=== PATIENT | male | born 1985 | race Caucasian/White ===

== ENCOUNTER 2019-07-31 10:38 | Emergency (ER) | payer MEDICAID, SELFPAY ==
[2019-07-31] VITALS (8 sets, daily range): BP systolic 128–162; BP diastolic 71–113; PULSE 55–70; RESP 16–19; TEMP 36.4; O2SAT 96–99; BMI 27.4
--- NOTE | 2019-07-31 11:14 | PC.NURSE ---
Addendum entered by Sharon Hobbs RN 07/31/19 11:29: denies abdominal pain with palpitation. Patient reports his stomach hurts due to the dry heaving. Original Note: Patient reports that he has had nausea, vomiting, and diarrhea since Monday. Patient states that is getting worse. Patient reports that he has been unable to eat or drink anything for 2 days. Patient denies abdominal pain.
[2019-07-31] MEDS: ondansetron 2 mg/ML SDV 2 mL 4 MG IVP ×2 (11:24→12:43)
--- NOTE | 2019-07-31 11:24 | ED_ITS ---
Entered by Emely Francis, acting as scribe for Mouna Greenwood MD Jul 31, 2019 10:38 HPI - Abdominal Pain General: Chief Complaint: Abdominal Pain Stated Complaint: N//////////////V Time Seen by Provider: 07/31/19 11:23 Source: patient Mode of arrival: ambulatory Limitations: no limitations History of Present Illness: HPI narrative: 33 yo male presents with abdomen pain. pt states this started 3 days ago but worsened today. pt has had nausea and vomiting. pt states he is exposed to sick symptoms frequently with room mate that is a nurse. pt denies any other symptoms at this time. pt has a hx of MS. MD elicited complaint: abdominal pain Pertinent past history: other (MS) Onset (ago): day(s) (2-3 days) Pain Consistency: constant Location: Diffuse Severity: moderate Quality: cramping Exacerbating factors: other Relieving factors: nothing Context: sick contacts (room mate) Associated Symptoms: Reports chills, nausea, poor appetite and vomiting Review of Systems General: Reports: 10 or more systems reviewed and unremarkable except in HPI and below Const: Reports: chills Eyes: Denies: change in vision ENMT: Denies: throat pain Card: Denies: chest pain Resp: Denies: shortness of breath GI: Reports: nausea and vomiting Musc: Denies: muscle weakness Skin/Breast: Denies: rash Neuro: Denies: headache Psych: Denies: hopelessness or suicidal ideation Endo: Denies: excessive urination Jason/Lymph: Denies: easy bruising or easy bleeding All/Imm: Denies: hives PFSH ED PFSH: Social History Smoking and tobacco status: current every day smoker Physical Exam Const: COMMON NORMALS: no apparent distress, oriented x3, alert and well nourished HENMT: COMMON NORMALS: normocephalic and external nose normal HEAD & SCALP: normocephalic NOSE: external nose normal and mucous membranes and turbinates abnormal (dry) MOUTH: no trismus Eye: COMMON NORMALS: EOMs intact bilaterally and conjunctivae normal CONJUNCTIVA: Yes conjunctivae normal Neck/C-Spine: COMMON NORMALS: full ROM, no lymphadenopathy and supple CERVICAL SPINE: Yes cervical ROM normal Lymph: LYMPHATIC: no lymphadenopathy noted Resp: COMMON NORMALS: normal respiratory effort, no retractions, no use of accessory muscles and clear to auscultation bilaterally EFFORT & INSPECTION: Yes able to speak in complete sentences AUSCULTATION: clear to auscultation bilaterally Cardio: COMMON NORMALS: regular rate and regular rhythm RATE: regular rate RHYTHM: regular rhythm GI: COMMON NORMALS: soft to palpation AUSCULTATION: Yes absent bowel sounds PALPATION: Yes soft and Yes tender Back/Pelvis: OTHER: Normal range of motion Extremity: GENERAL: Yes normal exam except as noted Neuro: COMMON NORMALS: oriented x3 and CN's II-XII intact bilaterally SENSORIUM/ORIENTATION: Yes alert SPEECH: speech normal Psych: COMMON NORMALS: mental status grossly normal Skin: COMMON NORMALS: no rashes or lesions noted GENERAL SKIN EXAM: no rashes or lesions noted Course Vital Signs: Vital signs: Vital Signs Temperature 97.6 F 07/31/19 10:55 Pulse Rate 58 L 07/31/19 16:08 Respiratory Rate 16 07/31/19 16:08 Blood Pressure 162/87 07/31/19 16:08 Pulse Oximetry 97 07/31/19 16:08 MDM - Abdominal Pain MDM Narrative: Medical decision making narrative: Patient's white count is elevated but this is nonspecific he does not have a surgical abdomen and does not have abdominal pain except from dry heaving he states. Feels slightly better but just vomited. We will go ahead and order CT abdomen because of his white count at this point. Another liter of IV fluids pain medicine and IV Zofran ordered as well. 1527 patient sipping on water feeling better no recent vomiting feels like he can go home. Will discharge with Zofran and Phenergan prescription. Lab Data: Labs: Lab Results 07/31/19 07/31/19 07/31/19 Range/Units 11:39 11:45 11:45 WBC 19.2 H (4.0-10.0) 10^3/ uL RBC 5.89 H (4.1-5.3) 10^6/u L Hgb 16.4 (11.7-16.6) g/dL Hct 49.8 (42.0-52.0) % MCV 84.6 (80-94) fL MCH 27.8 L (28.0-34.0) pg MCHC 32.9 (30.0-36.0) g/dL RDW 12.5 (12.1-15.1) % Plt Count 338 (130-400) 10^3/c mm MPV 10.0 (7.4-10.4) fL Total Counted 100 (0-100) Segmented Neutroph ils 84 % Band Neutrophils 1.0 % Lymphocytes (Manua l) 11 % Monocytes (Manual) 3.0 % Absolute Monocytes 0.6 (0.1-0.6) 10^3/c mm Eosinophils (Manua l) 1 % Absolute Eosinophi ls 0.1 (0.0-0.7) 10^3/c mm Platelet Estimate Normal (Normal) Sodium 137 (136-145) mmol/L Potassium 4.3 (3.5-5.1) mmol/L Chloride 97 L (98-107) mmol/L Carbon Dioxide 22 (22-29) mmol/L Anion Gap 22.3 H (5-19) BUN 13 (6-20) mg/dL Creatinine 1.1 (0.7-1.2) mg/dL GFR Calculation 78.1 L (90-130) mL/min Glucose 138 H (65-115) mg/dL Calcium 10.9 H (8.5-10.5) mg/dL Total Bilirubin 0.9 (0.15-1.2) mg/dL AST 25 (0-40) U/L ALT 44 H (0-41) U/L Alkaline Phosphata se 124 (40-130) IU/L Total Protein 8.5 (6.6-8.7) g/dL Albumin 5.2 (3.5-5.2) g/dL Globulin 3.3 (1.3-4.6) g/dL Lipase 11 L (13-60) U/L Influenza Type A A g Negative (Negative) POC Influenza B Ag Negative (Negative) Imaging Data ^: CT Abd/Pel: Radiologist's impression: [address] [address] [address] Scan Report Signed Patient: Vipin Orona #: [id number] : 1985Acct#:[id number] Age/Sex: 33 / MADM Date: 07/31/19 Loc: ERRoom/Bed: Attending Dr: Ordering Provider/Ordering MD: Mouna Greenwood MD Date of Service: 07/31/19 Procedure(s): CT abdomen pelvis wo con [id number] Accession Number(s): [id number] Report Number: [id number] WS: [id number] CT ABDOMEN AND PELVIS NONCONTRAST HISTORY: abd pain, wbc 19k TECHNIQUE: Imaging performed through the abdomen and pelvis. Coronal and sagittal reformats are submitted. All CT scans at [facility] use at least one of these dose optimization techniques: automated exposure control; mA and/or kV adjustment per patient size (includes targeted exams where dose is matched to clinical indication); or iterative reconstruction. DLP: 643.92 mGy.cm COMPARISON: None available. Lower thorax: Lung bases are clear. Moderate size hiatal hernia. Heart size is normal. Liver: Normal, no mass or intrahepatic dilatation. Gallbladder: Unremarkable. Pancreas: Normal. Spleen: Normal. Adrenal glands: Normal. Right kidney: Normal size with no stones, masses or atrophy. Left kidney: Normal size with no stones, mass or atrophy. Abdominal aorta and IVC are unremarkable. No free fluid, intraperitoneal air or significant lymphadenopathy. GI tract: Appendix is normal. There is moderate fluid distention of the small bowel and the colon. Small bowel loops are measuring top normal at 2.9 cm. No obstructive pattern. No diverticulosis. No wall thickening is appreciated. Abdominal wall: Intact. Pelvis: Mild wall thickening of the urinary bladder. May be due to partial distention. No free fluid or adenopathy. Osseous structures: Unremarkable. CT/CT abdomen pelvis wo con [id number] IMPRESSION: 1. Normal appendix. 2. No renal stone or obstruction. 3. Moderate fluid distention of the small bowel and colon. No site of obstruction. Consider diffuse gastroenteritis. 4. No free fluid. 5. Moderate hiatal hernia. Dictated By:Latricia Andersen DO Signed By:Latricia Andersen DOSigned Date/Time:07/31/19 1304 Discharge Plan Discharge Patient Disposition: Home, Self-Care Clinical Impression: Gastroenteritis Condition: Stable Prescriptions: New ondansetron 4 mg tablet,disintegrating 4 mg PO TID PRN (Reason: nausea and vomiting) 4 Days Qty: 12 RF: 0 promethazine 25 mg tablet 25 mg PO Q6H PRN (Reason: nausea and vomiting) Qty: 10 RF: 0 No Action clonazepam 0.5 mg Tablet 0.5 mg PO BID RF: 0 modafinil 200 mg Tablet 200 mg PO DAILY RF: 0 Cymbalta 30 mg Capsule,Delayed Release(Dr/Ec) 30 mg PO BID RF: 0 Ms Med See Rx Instructions .ROUTE .COMPLEX RF: 0 Referrals: Stacey Hopkins APN [Family Provider] - Discharge Diet: Advance as tolerated and Clear Liquid Patient Instructions: Gastroenteritis (ED) Discharge Date/Time: 07/31/19 16:09 Coding Level of Care Code ED Language Interpreter for Chg Fwd Exam Comprehensive The documentation recorded by the Tito pack Bridget Annette, accurately reflects the service I personally performed and the decisions made by , Mouna Greenwood MD Jul 31, 2019 10:38
[2019-07-31] MEDS: sodium chloride 0.9% 1,000 ML 999 ML IV ×2 (11:26→12:51)
[2019-07-31 11:54] LABS: Hematocrit 49.8 % (42.0-52.0); Hemoglobin 16.4 g/dL (11.7-16.6); Mean Corpuscular HGB Conc 32.9 g/dL (30.0-36.0); Mean Corpuscular Hemoglobin 27.8 pg (28.0-34.0); Mean Corpuscular Volume 84.6 fL (80-94); Platelet Count 338 10^3/cmm (130-400); Red Blood Count 5.89 10^6/uL (4.1-5.3); Red Cell Distribution Width 12.5 % (12.1-15.1); White Blood Count 19.2 10^3/uL (4.0-10.0)
[2019-07-31] MEDS: promethazine 25 mg/mL SDV 1 mL IV (12:04)
[2019-07-31] MEDS: fentaNYL 50 mcg/mL INJ 2mL IVP ×3 (12:04→14:51)
--- NOTE | 2019-07-31 12:09 | PC.PHAR ---
PT STATES THAT HE TAKES MS MEDICATION, AND THAT HE GETS THEM AT A SPECIALTY PHARMACY. HE DOESN'T KNOW THE NAME OF THE PHARMACY.
[2019-07-31 12:15] LABS: Absolute Eosinophils 0.1 10^3/cmm (0.0-0.7); Absolute Segmented Neutrophil 16.1 10/cmm (1.6-7.1); Alanine Aminotransferase 44 U/L (0-41); Albumin Level 5.2 g/dL (3.5-5.2); Alkaline Phosphatase 124 IU/L (40-130); Anion Gap 22.3 (5-19); Aspartate Amino Transferase 25 U/L (0-40); Band Neutrophils Absolute 0.2 10^3/cmm (0.0-1.2); Blood Urea Nitrogen 13 mg/dL (6-20); Calcium 10.9 mg/dL (8.5-10.5); Carbon Dioxide 22 mmol/L (22-29); Chloride 97 mmol/L (98-107); Creatinine Clr Calc Pharmacy 95.1333; Eosinophils 1 %; Globulin 3.3 g/dL (1.3-4.6); Glomerular Filtration Rate 78.1 mL/min (90-130); Glucose 138 mg/dL (65-115); Lipase 11 U/L (13-60); Lymphocytes 11 %; Monocytes Absolute 0.6 10^3/cmm (0.1-0.6); Potassium 4.3 mmol/L (3.5-5.1); Segmented Neutrophils 84 %; Sodium 137 mmol/L (136-145); Total Bilirubin 0.9 mg/dL (0.15-1.2); Total Cells Counted 100 (0-100); Total Protein 8.5 g/dL (6.6-8.7)
[2019-07-31 12:16] LABS: Platelet Estimate Normal (Normal)
[2019-07-31 12:16] LABS: Influenza A by IFA Negative (Negative); Influenza B by IFA Negative (Negative)
--- NOTE | 2019-07-31 12:33 | CT_ITS ---
WS: [id number] CT ABDOMEN AND PELVIS NONCONTRAST HISTORY: abd pain, wbc 19k TECHNIQUE: Imaging performed through the abdomen and pelvis. Coronal and sagittal reformats are submi tted. All CT scans at [facility] use at least one of these dose optimization techniques: automated exposure control; mA and/or kV adjustment per patient size (includes targeted exams where d ose is matched to clinical indication); or iterative reconstruction. DLP: 643.92 mGy.cm COMPARISON: None available. Lower thorax: Lung bases are clear. Moderate size hiatal hernia. Heart size is normal. Liver: Normal, no mass or intrahepatic dilatation. Gallbladder: Unremarkable. Pancreas: Normal. Spleen: Normal. Adrenal glands: Normal. Right kidney: Normal size with no stones, masses or atrophy. Left kidney: Normal size with no stones, mass or atrophy. Abdominal aorta and IVC are unremarkable. No free fluid, intraperitoneal air or significant lymphadenopathy. GI tract: Appendix is normal. There is moderate fluid distention of the small bowel and the colon. Sm all bowel loops are measuring top normal at 2.9 cm. No obstructive pattern. No diverticulosis. No wal l thickening is appreciated. Abdominal wall: Intact. Pelvis: Mild wall thickening of the urinary bladder. May be due to partial distention. No free fluid or adenopathy. Osseous structures: Unremarkable. CT/CT abdomen pelvis wo con [id number] IMPRESSION: 1. Normal appendix. 2. No renal stone or obstruction. 3. Moderate fluid distention of the small bowel and colon. No site of obstruct ion. Consider diffuse gastroenteritis. 4. No free fluid. 5. Moderate hiatal hernia.
[2019-07-31] MEDS: metoclopramide 5 mg/mL SDV 2 mL 10 MG IVP (14:01)
--- NOTE | 2019-07-31 15:06 | PC.NURSE ---
PT REQUESTED PAIN MED, STATES HIS PAIN WAS COMING BACK . VERBAL ORDER REC'D FROM DR. SALEEM. PRIOR TO PT RECEIVING PAIN MED HE APPEARED DIFFICULT TO AROUSE USING VERBAL STIMULI. TAPPED PT GENTLY ON THE SHOULDER AND REMOVED BLANKET, PT BECAME ALERT IMMEDIATELY, WAS ORIENTED X'S 3 AND STILL REQUESTED PAIN MED. VITAL SIGNS OBTAINED. PO FLUID GIVEN TO PT WITH INSTRUCTIONS, PT VERBALIZES UNDERSTANDING. ONCE PT REMAINED AWAKE FOR SEVERAL MINUTES PAIN MED WAS ADMINISTERED ORDERED. DR SALEEM AWARE.
== END 2019-07-31 16:09 | disposition home or self-care (01) ==
PROVIDERS: Emergency Provider Emergency Medicine; Family Provider Nurse Practitioner
DX: K52.9 Noninfective gastroenteritis and colitis, unspecified (principal); F17.200 Nicotine dependence, unspecified, uncomplicated
CPT/HCPCS: 74176; 80053; 83690; 85007; 85027; 87804; 96361; 96374; 96375; 96376; 99283; 99284; J2405; J2550; J2765; J3010; J7030

== ENCOUNTER → 2019-11-04 10:09 | Outpatient (BNVA) | payer MEDICAID, SELFPAY | PROVIDERS: Family Provider Internal Medicine; PCP Nurse Practitioner; Referring Provider Nurse Practitioner Family; Visit Provider Podiatrist Foot & Ankle Surgery | DX: M79.671 Pain in right foot (principal); M79.672 Pain in left foot; M77.32 Calcaneal spur, left foot | CPT/HCPCS: 73630 ==

== ENCOUNTER 2020-01-28 04:18 | Emergency (ER) | payer MEDICAID, SELFPAY ==
[2020-01-28 04:21] VITALS: BP 144/111; PULSE 82; RESP 18; TEMP 35.8; O2SAT 96; BMI 29.0
--- NOTE | 2020-01-28 04:30 | W.ED.ABDPA2 ---
HPI - Abdominal Pain General: Chief Complaint: Abdominal Pain Stated Complaint: nasuea/ vomiting/ diarhea Time Seen by Provider: 01/28/20 04:29 Source: patient Mode of arrival: ambulatory Limitations: no limitations History of Present Illness: HPI narrative: 34-year-old male who states he has had vomiting and diarrhea throughout the day. He states he has had multiple episodes. He states he has had abdominal cramping from vomiting. States pain is currently 2 out of 10. He states he took Zofran with no relief. Denies any fever. Denies blood in his vomit or diarrhea. Associated Symptoms: Reports diarrhea, nausea and vomiting; Denies chills, dysuria and fever(s) Review of Systems Const: Denies: fever(s), chills, body aches or change in appetite Eyes: Denies: blurry vision or eye discomfort ENMT: Denies: throat pain or dental pain Card: Denies: chest pain Resp: Denies: dyspnea GI: Reports: nausea, vomiting and diarrhea : Denies: dysuria Musc: Denies: neck pain or back pain Skin/Breast: Denies: rash Neuro: Denies: headache(s) Psych: Denies: depression Jason/Lymph: Denies: easy bruising All/Imm: Denies: urticaria PFSH ED PFSH: Social History Smoking and tobacco status: current every day smoker Physical Exam Const: COMMON NORMALS: no acute distress, patient oriented x3 and healthy appearing HENMT: COMMON NORMALS: normocephalic and atraumatic HEAD & SCALP: normocephalic and atraumatic Eye: COMMON NORMALS: Equal, round and reactive pupils present and EOMs intact bilaterally PUPIL: Yes Equal, round and reactive pupils present Neck/C-Spine: COMMON NORMALS: full ROM and supple Chest: COMMONS NORMALS: normal inspection of the chest and normal palpation of entire chest wall Resp: COMMON NORMALS: normal respiratory effort, No retractions, No use of accessory muscles and clear to auscultation bilaterally AUSCULTATION: clear to auscultation bilaterally Cardio: COMMON NORMALS: regular rate, regular rhythm and No murmurs present (Cardio) RATE: regular rate RHYTHM: regular rhythm GI: COMMON NORMALS: Normal to inspection, nondistended, normoactive bowel sounds present, Soft to palpation, non-tender and no masses PALPATION: Yes Soft to palpation Extremity: COMMON NORMALS: normal to inspection and full ROM Neuro: COMMON NORMALS: patient oriented x3, moves all extremities and no focal motor deficits Psych: COMMON NORMALS: mental status grossly normal, Normal thought process present and cooperative THOUGHT PROCESS: Normal thought process present Skin: COMMON NORMALS: no rashes or lesions noted and no wounds GENERAL SKIN EXAM: no rashes or lesions noted Course Vital Signs: Vital signs: Vital Signs Temperature 96.5 F L 01/28/20 04:21 Pulse Rate 92 01/28/20 07:10 Respiratory Rate 16 01/28/20 07:10 Blood Pressure 118/75 01/28/20 07:10 Pulse Oximetry 99 01/28/20 07:10 MDM - Abdominal Pain MDM Narrative: Medical decision making narrative: Carmela presents here with likely gastroenteritis. He is vomiting diarrhea. He feels improved after a and was able to tolerate p.o. Will place patient on Reglan and patient is stable for discharge. His abdominal exam is benign he has no signs of appendicitis or acute surgical abdomen. I informed if he has worsening pain or fever he is to return to the ER immediately. He understands and agrees to the plan. Lab Data: Labs: Lab Results 01/28/20 01/28/20 01/28/20 Range/Units 04:40 04:40 05:21 WBC Cancelled 13.8 H Corrected WBC Cancelled RBC Cancelled 6.11 H Hgb Cancelled 17.6 H Hct Cancelled 53.7 H MCV Cancelled 87.9 MCH Cancelled 28.8 MCHC Cancelled 32.8 RDW Cancelled 12.4 Plt Count Cancelled 289 MPV Cancelled 10.8 H Gran % Cancelled Neut % (Auto) Cancelled 88.0 Lymph % (Auto) Cancelled 8.1 [place] % (Auto) Cancelled 3.5 Eos % (Auto) Cancelled 0.0 Baso % (Auto) Cancelled 0.1 Neut # (Auto) Cancelled 12.13 H Lymph # (Auto) Cancelled 1.1 [place] # (Auto) Cancelled 0.5 Eos # (Auto) Cancelled 0.0 Baso # (Auto) Cancelled 0.0 Absolute Gran (aut o) Cancelled Nucleated RBC % (a uto) Cancelled 0 Nucleated RBCs # Cancelled 0.0 Sodium 142 (136-145) mmol/L Potassium 4.5 (3.5-5.1) mmol/L Chloride 103 (98-107) mmol/L Carbon Dioxide 24 (22-29) mmol/L Anion Gap 19.5 H (5-19) BUN 21 H (6-20) mg/dL Creatinine 1.1 (0.7-1.2) mg/dL GFR Calculation 77.6 L (90-130) mL/min Glucose 150 H (65-115) mg/dL Calculated Osmolal ity 293 (285-295) mOsm/k g Calcium 10.9 H (8.5-10.5) mg/dL Total Bilirubin 0.7 (0.15-1.2) mg/dL AST 29 (0-40) U/L ALT 49 H (0-41) U/L Alkaline Phosphata se 122 (40-130) IU/L Total Protein 9.0 H (6.6-8.7) g/dL Albumin 5.5 H (3.5-5.2) g/dL Globulin 3.5 (1.3-4.6) g/dL Lipase 20 (13-60) U/L Discharge Plan Discharge Patient Disposition: Home Clinical Impression: Gastroenteritis Condition: Stable Prescriptions: New Reglan 10 mg tablet 10 mg PO Q6H PRN (Reason: nausea and vomiting) Qty: 20 RF: 0 No Action hydrocodone-acetaminophen [[place]] 7.5-325 mg tablet 1 tab PO BID PRNRF: 0 gabapentin 300 mg capsule 300 mg PO DAILY RF: 0 omeprazole 20 mg capsule,delayed release(DR/EC) 20 mg PO DAILY RF: 0 Aubagio 7 mg tablet 7 mg PO DAILY RF: 0 clonazepam 0.5 mg Tablet 0.5 mg PO BID RF: 0 modafinil 200 mg Tablet 200 mg PO DAILY RF: 0 Cymbalta 30 mg Capsule,Delayed Release(Dr/Ec) 30 mg PO BID RF: 0 promethazine 25 mg tablet 25 mg PO Q6H PRN (Reason: nausea and vomiting) Qty: 10 RF: 0 Referrals: Ramsey Browne MD [Family Provider] - Jessica Oglesby FNP [Primary Care Provider] - 1-3 days Discharge Diet: Advance as tolerated Discharge Activity: Resume usual activity Patient Instructions: Acute Nausea and Vomiting (ED) Discharge Date/Time: 01/28/20 07:12 Coding Level of Care Code ED Proof Technician for Shantal Fwd Exam Comprehensive
[2020-01-28] MEDS: diphenhydrAMINE 50 mg/mL SDV 1mL IVP (04:50)
[2020-01-28] MEDS: diphenoxylate/atropine Tablet 1 TAB PO (04:50)
[2020-01-28] MEDS: sodium chloride 0.9% 1,000 ML 999 ML IV ×2 (04:50→05:53)
[2020-01-28] MEDS: metoclopramide 5 mg/mL SDV 2 mL 10 MG IVP (04:50)
[2020-01-28] MEDS: ondansetron 2 mg/ML SDV 2 mL 4 MG IVP (04:50)
[2020-01-28 05:13] LABS: Alanine Aminotransferase 49 U/L (0-41); Albumin Level 5.5 g/dL (3.5-5.2); Alkaline Phosphatase 122 IU/L (40-130); Anion Gap 19.5 (5-19); Aspartate Amino Transferase 29 U/L (0-40); Blood Urea Nitrogen 21 mg/dL (6-20); Calcium 10.9 mg/dL (8.5-10.5); Carbon Dioxide 24 mmol/L (22-29); Chloride 103 mmol/L (98-107); Globulin 3.5 g/dL (1.3-4.6); Glomerular Filtration Rate 77.6 mL/min (90-130); Glucose 150 mg/dL (65-115); Lipase 20 U/L (13-60); Osmolality Calculated 293 mOsm/kg (285-295); Potassium 4.5 mmol/L (3.5-5.1); Sodium 142 mmol/L (136-145); Total Bilirubin 0.7 mg/dL (0.15-1.2)
[2020-01-28 05:33] LABS: Basophils % 0.1 %; Hematocrit 53.7 % (42.0-52.0); Hemoglobin 17.6 g/dL (11.7-16.6); Lymphocytes # 1.1 10^3/uL (0.8-4.8); Lymphocytes % 8.1 %; Mean Corpuscular HGB Conc 32.8 g/dL (30.0-36.0); Mean Corpuscular Hemoglobin 28.8 pg (28.0-34.0); Mean Corpuscular Volume 87.9 fL (80-94); Mean Platelet Volume 10.8 fL (7.4-10.4); Monocytes # 0.5 10^3/uL (0.2-0.9); Monocytes % 3.5 %; Neutrophils # 12.13 10^3/uL (1.8-7.7); Nucleated Red Blood Cells % 0 %; Platelet Count 289 10^3/cmm (130-400); Red Blood Count 6.11 10^6/uL (4.1-5.3); Red Cell Distribution Width 12.4 % (12.1-15.1); White Blood Count 13.8 10^3/uL (4.0-10.0)
[2020-01-28] MEDS: morphine 4 mg/mL SDV 1 mL 6 MG IVP (06:03)
[2020-01-28 06:40] VITALS: BP 123/76; PULSE 87; RESP 16; O2SAT 98
[2020-01-28 07:10] VITALS: BP 118/75; PULSE 92; RESP 16; O2SAT 99
== END 2020-01-28 07:12 | disposition home or self-care (01) ==
PROVIDERS: Emergency Provider Emergency Medicine; Family Provider Internal Medicine; PCP Nurse Practitioner
DX: K52.9 Noninfective gastroenteritis and colitis, unspecified (principal); F17.210 Nicotine dependence, cigarettes, uncomplicated
CPT/HCPCS: 12345; 80053; 83690; 85025; 96361; 96374; 96375; 99282; 99283; J1200; J2270; J2405; J2765; J7030

== ENCOUNTER → 2020-04-15 09:58 | Outpatient (BNVA) | payer MEDICAID, SELFPAY | PROVIDERS: Family Provider Internal Medicine; PCP Nurse Practitioner; Referring Provider Nurse Practitioner Family; Visit Provider Internal Medicine | DX: G35 Multiple sclerosis (principal); R53.83 Other fatigue; R63.5 Abnormal weight gain; R79.89 Other specified abnormal findings of blood chemistry; S09.90XA Unspecified injury of head, initial encounter | CPT/HCPCS: 99204 ==

== ENCOUNTER 2020-05-26 08:19 | Outpatient (CLI) | payer MEDICAID, SELFPAY ==
[2020-05-26 14:17] LABS: Testosterone Total 301.4 ng/dL (249-836); Thyroid Stimulating Hormone 0.78 uIU/mL (0.27-4.20)
[2020-05-26 14:28] LABS: Cortisol Random 0.68 ug/mL (2.47-19.5)
[2020-06-04 23:18] LABS: Testosterone, Free 89.1 pg/mL (46.0-224.0)
== END 2020-05-26 08:20 | disposition home or self-care (01) ==
LOC: LAB 08:21
PROVIDERS: PCP Nurse Practitioner; Visit Provider Internal Medicine
DX: R53.83 Other fatigue (principal); R63.5 Abnormal weight gain; R79.89 Other specified abnormal findings of blood chemistry; S09.90XA Unspecified injury of head, initial encounter; X58.XXXA Exposure to other specified factors, initial encounter
CPT/HCPCS: 36415; 82533; 84402; 84403; 84443

== ENCOUNTER → 2020-05-28 09:00 | Outpatient (BNVA) | payer MEDICAID, SELFPAY | PROVIDERS: PCP Nurse Practitioner; Referring Provider Psychiatry & Neurology Neurology; Visit Provider Specialist | DX: G35 Multiple sclerosis (principal); F98.8 Other specified behavioral and emotional disorders with onset usually occurring in childhood and adolescence; F17.210 Nicotine dependence, cigarettes, uncomplicated | CPT/HCPCS: 99205 ==

== ENCOUNTER 2020-06-23 12:45 | Outpatient (CLI) | payer MEDICAID, SELFPAY ==
--- NOTE | 2020-06-23 12:49 | MR_ITS ---
WS: [id number] MRI THORACIC SPINE WITH CONTRAST TECHNIQUE: Sagittal T1, T2 and STIR imaging. Axial T2 imaging. Post gadolinium imaging was obtained. CLINICAL INFORMATION: G35 - Multiple sclerosis COMPARISON: None. FINDINGS: Normal thoracic alignment. No acute compression. No high-grade central canal stenosis. Cord signal is normal. No demyelinating lesions within the thoracic cord. No significant cord atrophy. No enhancing lesions within the thoracic cord. Adrenal glands are normal. Normal paravertebral soft tissues. Adrenal gland s are normal. On the chemical lab supervisor imaging, Mild disc bulging C6-7 with a small central protrusion and mild central canal s tenosis. This can be further evaluated with cervical spine MRI. MR/MR thoracic spine wo/w [id number] IMPRESSION: 1. Normal thoracic alignment. Cord signal is normal. 2. No visualized demyelinating lesions within the thoracic cord. No enhancing lesions to indicate active disease. 3. No significant cord atrophy. 4. No significant disc protrusions or extrusions. 5. Small central protrusion chemical lab supervisor imaging at C6-7 with mild central canal sten osis. This can be further evaluated with cervical spine MRI if indicated.
== END 2020-06-23 12:46 | disposition home or self-care (01) ==
LOC: RADWPI 12:47
PROVIDERS: PCP Nurse Practitioner; Visit Provider Specialist
DX: G35 Multiple sclerosis (principal)
CPT/HCPCS: 72157; A9579

== ENCOUNTER → 2020-06-29 09:13 | Outpatient (BNVA) | payer MEDICAID, SELFPAY | PROVIDERS: PCP Nurse Practitioner; Visit Provider Specialist | DX: G35 Multiple sclerosis (principal); F17.210 Nicotine dependence, cigarettes, uncomplicated | CPT/HCPCS: 99214 ==

== ENCOUNTER 2020-06-30 09:07 | Outpatient (CLI) | payer MEDICAID, SELFPAY ==
--- NOTE | 2020-06-30 09:11 | MR_ITS ---
WS: [id number] MRI BRAIN WITH AND WITHOUT CONTRAST HISTORY: G35 - Multiple sclerosis COMPARISON: None available. TECHNIQUE: Multiplanar imaging performed through the brain with MultiHance 16 ml's IV. No evidence for acute infarct or hemorrhage. There are numerous small T2 and FLAIR signal abnormaliti es surrounding the ventricles. Distribution suspicious for demyelinating disease. There is a perpendi cular corpus callosal lesion in the occipital region of the RIGHT lateral ventricle. This does extend to involve the corpus callosum. There are additional smaller adjacent pericallosal signal abnormalit ies. These are involving the anterior and posterior portions of the corpus callosum. There is also in volvement of the LEFT temporal lobe medially. There is no hemorrhage. None of these lesions enhance. No susceptibility artifacts or prior lacunar infarcts. Ventricles and extra-axial spaces are normal. Clivus and pituitary gland are normal. Visualized posterior fossa and brainstem are also normal. No demyelinating lesions or enhancing. Postcontrast images are negative for masses or vascular malformations. Dural venous sinuses are normal. Paranasal sinuses: Well aerated with no significant disease. Mastoid air cells: Normal. Calvarium and scalp: Normal. MR/MR head wo/w con [id number] IMPRESSION: 1. No evidence for an acute infarct or hemorrhage. 2. Pericallosal and LEFT temporal lobe demyelinating lesion with no enhancemen t. No evidence for necrosis or low signal within the lesions.
--- NOTE | 2020-06-30 09:11 | MR_ITS ---
WS: [id number] MRI CERVICAL SPINE with and without contrast. HISTORY: G35 - Multiple sclerosis Multiplanar, multisequence imaging is performed of the cervical spine with and without contrast. COMPARISON: None available. Normal cervical alignment. No fractures or marrow edema. Mild disc space narrowing and desiccation at C6-7. There is increased T2 and FLAIR signal in the dorsal lateral cervical cord at the C5-6 level. This is a bilateral finding with no enhancement. Craniocervical junction, C1 and C2 relationship, odontoid process and soft tissues are normal. C2-C3: Normal. C3-C4: Normal. C4-C5: Normal. C5-C6: Small disc osteophyte proximal LEFT foramen. No stenosis. C6-C7: Moderate size central disc osteophyte protrusion contacting the ventral thecal sac and cord. N o displacement. Additional disc osteophyte complexes bilaterally in the foramen. Mild central and kiet ateral foraminal stenosis. C7-T1: Normal. Paravertebral soft tissues are normal. There are no enhancing lesions identified. MR/MR cervical spine wo/w [id number] IMPRESSION: 1. Bilateral dorsal lateral signal abnormalities consistent with demyelination in the cervical cord at the C5-6 level. No enhancement to suggest active demye lination. 2. No cord atrophy or enlargement. 3. Mild central and bilateral foraminal stenosis at C6-7 due to disc osteophyt e disease.
== END 2020-06-30 09:08 | disposition home or self-care (01) ==
LOC: RADWPI 09:10
PROVIDERS: PCP Nurse Practitioner; Visit Provider Specialist
DX: G35 Multiple sclerosis (principal); M48.02 Spinal stenosis, cervical region
CPT/HCPCS: 70553; 72156; A9577

== ENCOUNTER 2020-07-03 08:52 | Outpatient (CLI) | payer MEDICAID, SELFPAY ==
[2020-07-03 10:44] LABS: Glomerular Filtration Rate 156.1 mL/min (90-130)
[2020-07-03 13:19] LABS: Cortisol Random 12.02 ug/dL (2.47-19.5)
== END 2020-07-03 08:53 | disposition home or self-care (01) ==
PROVIDERS: PCP Nurse Practitioner; Visit Provider Internal Medicine
DX: E27.40 Unspecified adrenocortical insufficiency (principal)
CPT/HCPCS: 82533; 82565

== ENCOUNTER → 2020-08-24 08:40 | Outpatient (BNVA) | payer MEDICAID, SELFPAY | PROVIDERS: PCP Nurse Practitioner; Visit Provider Anesthesiology Pain Medicine | DX: M54.16 Radiculopathy, lumbar region (principal); M50.90 Cervical disc disorder, unspecified, unspecified cervical region; G35 Multiple sclerosis; F17.210 Nicotine dependence, cigarettes, uncomplicated | CPT/HCPCS: 99205 ==

== ENCOUNTER 2020-09-08 15:27 | Outpatient (CLI) | payer MEDICAID, SELFPAY | END 2020-09-08 15:28 | disposition home or self-care (01) | LOC: SPT 15:27 | PROVIDERS: PCP Nurse Practitioner; Visit Provider Podiatrist Foot & Ankle Surgery | DX: Z46.89 Encounter for fitting and adjustment of other specified devices (principal); M72.2 Plantar fascial fibromatosis | CPT/HCPCS: 97760; L4397 ==

== ENCOUNTER 2020-10-20 16:33 | Outpatient (CLI) | payer MEDICAID, SELFPAY | END 2020-10-20 16:34 | disposition home or self-care (01) | LOC: SPT 10-21 08:34 | PROVIDERS: PCP Nurse Practitioner; Visit Provider Podiatrist Foot & Ankle Surgery | DX: Z46.89 Encounter for fitting and adjustment of other specified devices (principal); M72.2 Plantar fascial fibromatosis | CPT/HCPCS: 97760; L4397 ==

== ENCOUNTER 2020-11-10 09:00 | Outpatient (CLI) | payer MEDICAID, SELFPAY ==
[2020-11-10] MEDS: acetaminophen 500 mg Tablet 1000 MG PO (09:45)
[2020-11-10] MEDS: diphenhydrAMINE 50 mg/mL SDV 1mL 12.5 MG IVP (09:50)
--- NOTE | 2020-11-10 12:35 | PC.NURSE ---
Patient had panic attack at 1030. Physician was notified. Medication was stopped for less than a minute and restarted.
--- NOTE | 2020-11-10 12:43 | PC.NURSE ---
1150 patient complained of itching on his scalp and scratching of his throat. Infusion was decreased and Dr. Umana administered Solumedrol.
== END 2020-11-10 09:01 | disposition home or self-care (01) ==
LOC: NSACUTE 09:02
PROVIDERS: PCP Nurse Practitioner; Visit Provider Specialist
DX: G35 Multiple sclerosis (principal); R20.0 Anesthesia of skin; R20.2 Paresthesia of skin; F17.210 Nicotine dependence, cigarettes, uncomplicated
CPT/HCPCS: 96365; 96366; 96375; 96376; 99214; J1200; J2350; J2930; J7050

== ENCOUNTER → 2020-11-23 08:58 | Outpatient (BNVA) | payer MEDICAID, SELFPAY | PROVIDERS: PCP Nurse Practitioner; Visit Provider Specialist | DX: G56.22 Lesion of ulnar nerve, left upper limb (principal); R20.0 Anesthesia of skin; R20.2 Paresthesia of skin; F17.210 Nicotine dependence, cigarettes, uncomplicated | CPT/HCPCS: 95910 ==

== ENCOUNTER 2020-11-25 08:55 | Outpatient (CLI) | payer MEDICAID, SELFPAY ==
[2020-11-25] MEDS: acetaminophen 500 mg Tablet 1000 MG PO (09:28)
[2020-11-25] MEDS: diphenhydrAMINE 50 mg/mL SDV 1mL 25 MG IVP (10:00)
--- NOTE | 2020-11-25 10:24 | PC.NURSE ---
Patient had a anxiety attack. He is feeling better after deep breathing. Dr. Wallis was notified. She stated if he had his Klonopin with him he would be able to take a tablet. He does not have it with him. His mother will leave to get it if needed but he is feeling better now.
[2020-11-25] MEDS: diphenhydrAMINE 50 mg/mL SDV 1mL 12.5 MG IVP (11:42)
--- NOTE | 2020-11-25 11:54 | PC.NURSE ---
At 1135 patient notified nursing staff that he had itching sensation and had red patches on his face. Infusion was stopped and Dr. Wallis notified. Verbal order for benadryl was ordered. Benadryl was administered by Dr. Wallis. Patients infusion was turned back on.
== END 2020-11-25 08:56 | disposition home or self-care (01) ==
LOC: NSACUTE 08:56
PROVIDERS: PCP Nurse Practitioner; Visit Provider Specialist
DX: G35 Multiple sclerosis (principal)
CPT/HCPCS: 96365; 96366; 96375; 96376; J1200; J2350; J2930; J7050

== ENCOUNTER 2020-11-25 18:25 | Emergency (ER) | payer MEDICAID, SELFPAY ==
--- NOTE | 2020-11-25 18:29 | XRR_ITS ---
PROCEDURE INFORMATION: Exam: XR Chest Exam date and time: 11/25/2020 6:29 PM Age: 34 years old Clinical indication: Pain; Other: Tightness; Additional info: Cp TECHNIQUE: Imaging protocol: XR of the chest. Views: 1 view. COMPARISON: 1. MR cervical spine wo/w [id number] 06/30/2020 9:17 AM 2. MR thoracic spine wo/w [id number] 06/23/2020 12:[address] abdomen pelvis wo con [id number] 07/31/2019 1:05 PM FINDINGS: Lungs: No consolidation. Pleural spaces: Unremarkable. No pleural effusion. No pneumothorax. Heart/Mediastinum: No cardiomegaly. Bones/joints: No acute fracture. XR/XR chest 1V portable [id number] IMPRESSION: No acute findings.
[2020-11-25 18:38] VITALS: BP 172/105; PULSE 155; RESP 24; TEMP 36.9; O2SAT 99; BMI 27.4
--- NOTE | 2020-11-25 19:55 | ED_ITS ---
HPI - Anxiety General: Chief Complaint: Anxiety Stated Complaint: Chest Tightness After Infusion Time Seen by Provider: 11/25/20 19:41 Source: patient Mode of arrival: ambulatory Limitations: no limitations History of Present Illness: HPI narrative: 34-year-old male has a history of MS is getting infusions by Dr. Wallis. He states he had a reaction to 1 last time and today they pretreated with hydrocortisone and Benadryl. He states after his transfusion he felt fine and he took one of his Adderall and started having what he believes was an anxiety attack. He states he is just is having palpitations and feeling short of breath. Patient denies any rash or difficulty swallowing. He was tachycardic when he first arrived in 150s. Denies any worsening improving factors. Associated symptoms: Reports palpitations; Deny chills, fever(s), headache(s), nausea or vomiting Review of Systems Const: Denies: fever(s), chills, body aches or change in appetite Eyes: Denies: blurry vision or eye discomfort ENMT: Denies: throat pain or dental pain Card: Reports: palpitations Resp: Denies: dyspnea GI: Denies: abdominal pain, nausea, vomiting or diarrhea : Denies: dysuria Musc: Denies: neck pain or back pain Skin/Breast: Denies: rash Neuro: Denies: headache(s) Psych: Reports: anxiety Jason/Lymph: Denies: easy bruising All/Imm: Denies: urticaria PFSH ED PFSH: Medical History (Updated 11/25/20 @ 20:53 by Andrez Olvera MD) Multiple sclerosis Surgical History No history of previous surgery Family History Mother Anxiety Stroke Father Anxiety Diabetes Hypertension Social History Smoking and tobacco status: current every day smoker cigarettes Alcohol intake: never History of recent travel: No Physical Exam Const: COMMON NORMALS: no acute distress, patient oriented x3 and healthy appearing HENMT: COMMON NORMALS: normocephalic and atraumatic HEAD & SCALP: normocephalic and atraumatic Eye: COMMON NORMALS: Equal, round and reactive pupils present and EOMs intact bilaterally PUPIL: Yes Equal, round and reactive pupils present Neck/C-Spine: COMMON NORMALS: full ROM and supple Chest: COMMONS NORMALS: normal inspection of the chest and normal palpation of entire chest wall Resp: COMMON NORMALS: normal respiratory effort, No retractions, No use of accessory muscles and clear to auscultation bilaterally AUSCULTATION: clear to auscultation bilaterally Cardio: COMMON NORMALS: regular rhythm and No murmurs present (Cardio) RATE: tachycardic RHYTHM: regular rhythm GI: COMMON NORMALS: Normal to inspection, nondistended, normoactive bowel sounds present, Soft to palpation, non-tender and no masses PALPATION: Yes Soft to palpation Extremity: COMMON NORMALS: normal to inspection and full ROM Neuro: COMMON NORMALS: patient oriented x3, moves all extremities and no focal motor deficits Psych: COMMON NORMALS: mental status grossly normal, Normal thought process present and cooperative THOUGHT PROCESS: Normal thought process present Skin: COMMON NORMALS: no rashes or lesions noted and no wounds GENERAL SKIN EXAM: no rashes or lesions noted Course Vital Signs: Vital signs: Vital Signs Temperature 98.5 F 11/25/20 18:38 Pulse Rate 155 H 11/25/20 18:38 Respiratory Rate 24 H 11/25/20 18:38 Blood Pressure 172/105 11/25/20 18:38 Pulse Oximetry 99 11/25/20 18:38 MDM - Anxiety MDM Narrative: Medical decision making narrative: Patient presents here with likely anxiety attack. Feels much improved after Ativan is EKG and x-ray and blood work are all normal. He is stable for discharge to follow-up with his neurologist and return if worsening. Imaging Data^: CXR: Attestation: I personally reviewed and interpreted this imaging study as follows: My impression: no acute abnormalities EKG Data^: EKG 1: Attestation: I personally reviewed and interpreted this EKG as follows: EKG interpretation date: 11/25/20 EKG interpretation time: 18:37 Interpretation: Chest X-Ray 11/25/20 18:29 IMPRESSION: No acute findings. sinus tach hr [address] or t wave abnormalities qrs 83 qtc 390 Other EKG comments: Chest X-Ray 11/25/20 18:29 IMPRESSION: No acute findings. Lab Data: Labs: Lab Results 11/25/20 11/25/20 11/25/20 Range/Units 20:10 20:10 20:10 WBC 7.7 (4.0-10.0) 10^3/ uL RBC 5.09 (4.1-5.3) 10^6/u L Hgb 14.5 (11.7-16.6) g/dL Hct 45.0 (42.0-52.0) % MCV 88.4 (80-94) fL MCH 28.5 (28.0-34.0) pg MCHC 32.2 (30.0-36.0) g/dL RDW 13.1 (12.1-15.1) % Plt Count 253 (130-400) 10^3/c mm MPV 10.2 (7.4-10.4) fL Neut % (Auto) 96.7 % Lymph % (Auto) 2.3 % [place] % (Auto) 0.3 % Eos % (Auto) 0.0 % Baso % (Auto) 0.3 % Neut # (Auto) 7.49 (1.8-7.7) 10^3/u L Lymph # (Auto) 0.2 L (0.8-4.8) 10^3/u L [place] # (Auto) 0.0 L (0.2-0.9) 10^3/u L Eos # (Auto) 0.0 (0.0-0.8) 10^3/u L Baso # (Auto) 0.0 (0.0-0.1) 10^3/u L Nucleated RBC % (a uto) 0 % Nucleated RBCs # 0.0 /100WBC Sodium 135 L (136-145) mmol/L Potassium 4.4 (3.5-5.1) mmol/L Chloride 100 (98-107) mmol/L Carbon Dioxide 20 L (22-29) mmol/L Anion Gap 19.4 H (5-19) BUN 12 (6-20) mg/dL Creatinine 0.8 (0.7-1.2) mg/dL GFR Calculation 112.0 (90-130) mL/min Glucose 178 H (65-115) mg/dL Calculated Osmolal ity 284 L (285-295) mOsm/k g Calcium 9.9 (8.5-10.5) mg/dL Total Bilirubin 0.4 (0.15-1.2) mg/dL AST 30 (0-40) U/L ALT 43 H (0-41) U/L Alkaline Phosphata se 97 (40-130) IU/L Troponin T Baselin e 6 (0-15) ng/L Total Protein 6.9 (6.6-8.7) g/dL Albumin 4.9 (3.5-5.2) g/dL Globulin 2.0 (1.3-4.6) g/dL Discharge Plan Discharge Patient Disposition: Home Clinical Impression: Acute anxiety Condition: Stable Prescriptions: No Action baclofen 5 mg tablet 10 mg PO BID RF: 0 buprenorphine-naloxone 8-2 mg tablet, sublingual 1 tab sublingual TID RF: 0 gabapentin 300 mg capsule 300 mg PO DAILY RF: 0 omeprazole 20 mg capsule,delayed release(DR/EC) 20 mg PO DAILY RF: 0 nitroglycerin 0.1 mg/hr patch 24 hour 1 patch transdermal DAILY Qty: 60 RF: 2 (DME) Night splint See Rx Instructions .Route .MEDSUPPLY Qty: 1 RF: 0 (DME) Night Splint See Rx Instructions .Route .MEDSUPPLY Qty: 1 RF: 0 methylphenidate HCl [Ritalin] 20 mg tablet 20 mg PO BID 30 Days Qty: 60 RF: 0 methylphenidate HCl [Ritalin] 20 mg tablet 20 mg PO QAM 30 Days Qty: 30 RF: 0 methylphenidate HCl [Ritalin] 20 mg tablet 20 mg PO DAILY 30 Days Qty: 60 RF: 0 clonazepam 0.5 mg Tablet 0.5 mg PO BID RF: 0 Reglan 10 mg tablet 10 mg PO Q6H PRN (Reason: nausea and vomiting) Qty: 20 RF: 0 Discharge Orders: Discharge ED (Routine); Ordered 11/25/20 Ordered By: Andrez Olvera Referrals: Stacey Hopkins CARDIOVASCULAR RADIOLOGIC TECHNOLOGIST [Primary Care Provider] - 1-3 days Discharge Diet: Advance as tolerated Discharge Activity: Resume usual activity Patient Instructions: Anxiety (ED) Coding Level of Care Code ED Food Service Team Member for Shantal Fwd Exam Comprehensive
[2020-11-25 20:17] LABS: Basophils % 0.3 %; Hemoglobin 14.5 g/dL (11.7-16.6); Lymphocytes # 0.2 10^3/uL (0.8-4.8); Lymphocytes % 2.3 %; Mean Corpuscular HGB Conc 32.2 g/dL (30.0-36.0); Mean Corpuscular Hemoglobin 28.5 pg (28.0-34.0); Mean Corpuscular Volume 88.4 fL (80-94); Mean Platelet Volume 10.2 fL (7.4-10.4); Monocytes % 0.3 %; Neutrophils # 7.49 10^3/uL (1.8-7.7); Neutrophils % 96.7 %; Nucleated Red Blood Cells % 0 %; Platelet Count 253 10^3/cmm (130-400); Red Blood Count 5.09 10^6/uL (4.1-5.3); Red Cell Distribution Width 13.1 % (12.1-15.1); White Blood Count 7.7 10^3/uL (4.0-10.0)
[2020-11-25] MEDS: sodium chloride 0.9% 1,000 ML 999 ML IV (20:24)
--- NOTE | 2020-11-25 20:29 | ECG_ITS ---
[facility] Test Date: 2020-11-25 Pat Name: Vipin Orona Department: Room: Gender: Male Timber Bucker: : 1985 Requested By: Andrez Olvera Order Number: [id number] Rachel MD: Gunner Rankin M.D. Measurements Intervals Mobile Rate: 140 P: 61 IN: 125 QRS: 61 QRSD: 83 T: 19 QT: 308 QTc: 471 Interpretive Statements POSSIBLE ATRIAL FLUTTER with 2:1 block. NONSPECIFIC T-WAVE ABNORMALITY ABNORMAL RHYTHM ECG No previous ECG available for comparison Electronically Signed On 11-25-2020 20:15:01 CDT by Gunner Rankin M.D. [email or web address]
[2020-11-25] MEDS: LORazepam 2 mg/mL INJ 1 mL 1 MG IVP (20:31)
[2020-11-25 20:37] LABS: Troponin(5th) Baseline 6 ng/L (0-15)
[2020-11-25 20:38] LABS: Alanine Aminotransferase 43 U/L (0-41); Albumin Level 4.9 g/dL (3.5-5.2); Alkaline Phosphatase 97 IU/L (40-130); Aspartate Amino Transferase 30 U/L (0-40); Blood Urea Nitrogen 12 mg/dL (6-20); Calcium 9.9 mg/dL (8.5-10.5); Carbon Dioxide 20 mmol/L (22-29); Chloride 100 mmol/L (98-107); Creatinine Clr Calc Pharmacy 129.6083; Glucose 178 mg/dL (65-115); Osmolality Calculated 284 mOsm/kg (285-295); Sodium 135 mmol/L (136-145); Total Bilirubin 0.4 mg/dL (0.15-1.2); Total Protein 6.9 g/dL (6.6-8.7)
[2020-11-25 20:39] LABS: Anion Gap 19.4 (5-19); Potassium 4.4 mmol/L (3.5-5.1)
[2020-11-25 20:42] LABS: Slide Review Slide Review Perform
[2020-11-25 21:21] VITALS: BP 145/78; PULSE 96; RESP 18; O2SAT 99
== END 2020-11-25 21:22 | disposition home or self-care (01) ==
PROVIDERS: Emergency Provider Emergency Medicine; PCP Nurse Practitioner
DX: F41.9 Anxiety disorder, unspecified (principal); G35 Multiple sclerosis; F17.210 Nicotine dependence, cigarettes, uncomplicated
CPT/HCPCS: 71045; 80053; 84484; 85025; 93005; 96361; 96374; 99283; J2060; J7030

== ENCOUNTER → 2020-12-18 15:44 | Outpatient (BNVA) | payer MEDICAID, SELFPAY | PROVIDERS: PCP Nurse Practitioner; Visit Provider Orthopaedic Surgery | DX: Z01.812 Encounter for preprocedural laboratory examination (principal); Z20.822 Contact with and (suspected) exposure to COVID-19 | CPT/HCPCS: 87635 ==

== ENCOUNTER 2020-12-24 07:32 | Day surgery (SDC) | payer MEDICAID, SELFPAY ==
[2020-12-23 12:08] VITALS: BMI 27.1
[2020-12-24] VITALS (8 sets, daily range): BP systolic 135–167; BP diastolic 74–105; PULSE 56–85; RESP 14–18; TEMP 36.1–36.7; O2SAT 96–100
--- NOTE | 2020-12-24 08:43 | P.ANESASSM_ITS ---
Pre-Anesthetic Assessment Pre-Anesthetic Assessment: Height/Weight: Height 1.68 m Weight 76.204 kg Temp Pulse Resp BP Pulse Ox 97.4 F L 85 16 135/101 97 12/24/20 07:50 12/24/20 07:50 12/24/20 07:50 12/24/20 07:50 12/24/20 07:50 Preop Diagnosis: Carpal tunnel syndrome/Cubital tunnel syndrome Proposed Procedure: Operation Date: 12/24/20 09:15 Proposed Procedures p left Carpal Tunnel Release [id number] G56.02 G56.22(Left) - Valentin Emerson MD s left Ulna Nerve Decompression(Left) - Valentin Emerson MD Familial anesthetic complications: None Was Beta Uche taken within 24 hours: N/A Was Clonidine taken within 24 hours: N/A Last intake: Intake Last Liquid Date 12/23/20 Last Liquid Time 23:00 Last Solid Date 12/23/20 Last Solid Time 23:00 Social: Social History: Tobacco and No alcohol Comment: vapes Exam: Pre-Anes Outpt Exam: alert, oriented x 3, clear to auscultation b ilaterally and regular rate & rhythm Airway: Cervical ROM: WNL MP: 2 Dentition: Full Pulmonary: Pulmonary: Asthma Neuropsych: Comments: multiple sclerosis -avoid hyperthermia. Patient informed of risk of exacerbation with anesthesia/surgery. States ok to proceed Anesthetic Plan: ASA status: 3 Anesthesia: MAC and Regional (specify below) PFSH Anesthesia PFSH: Medical History Multiple sclerosis Surgical History No history of previous surgery Family History Mother Anxiety Stroke Father Anxiety Diabetes Hypertension Social History Smoking and tobacco status: current every day smoker (Vape 3%) cigarettes Alcohol intake: never History of recent travel: No Data Anesthesia Cardiac Studies: No Data to Display
[2020-12-24] MEDS: sodium chloride 0.9% 1,000 ML 30 ML IV (08:50)
--- NOTE | 2020-12-24 09:15 | W.PM.OPSUD ---
Surgery/Procedure H&P Update DATE OF PROCEDURE: December 24, 2020 DATE H&P PERFORMED: 12/16/20 PREOP DIAGNOSIS: Carpal tunnel syndrome/Cubital tunnel syndrome PLANNED PROCEDURE: Operation Date: 12/24/20 09:15 Proposed Procedures p left Carpal Tunnel Release [id number] G56.02 G56.22(Left) - Valentin Emerson MD s left Ulna Nerve Decompression(Left) - Valentin Emerson MD
--- NOTE | 2020-12-24 10:29 | PM.OP ---
Operative Report Date of procedure: December 24, 2020 Pre-op Diagnosis: Carpal tunnel syndrome/Cubital tunnel syndrome Post-op diagnosis: same Post-op Findings: Same Procedure Done: Left ulnar nerve decompression at cubital tunnel, left carpal tunnel release Pathology: none sent Anesthesia: Nerve Block (Josue block) Estimated blood loss (mL): 10 Tourniquet time (min): 31 Complications: None Findings: No masses or space-occupying lesions were seen at the ulnar nerve behind the elbow condyle. The nerve was entrapped in mild scar tissue but no dense fibrous bands were identified. No masses were identified in the carpal tunnel. In the carpal tunnel the patient was found to have a smaller branch of the median nerve in a separate compartment radially and several smaller digital branches ulnarly. Condition: stable Disposition: PACU Procedure: The patient was taken to the operating room and given a general anesthesia. A tourniquet was inflated to 225 mmHg. A timeout was performed. A 5 cm long incision was made behind the medial epicondyle. Dissection was accomplished bluntly under loupe magnification identifying the ulnar nerve proximally. Utilizing a hemostat the fascia over the nerve was elevated and incised proximally. Dissection was then carried distally behind the medial epicondyle and into the flexor carpi ulnaris musculature. Dissection was stopped with the first muscular branches identified. Elbow was brought through range of motion with the nerve seen to stay reduced behind the medial epicondyle. No formal transition was thought to be warranted. Wounds were irrigated with saline. The wound was packed with a moist 4 x 4 sponge. Attention was then focused on the carpal tunnel. PA 3 cm long incision was made in line with the fourth ray from the distal edge of the carpal tunnel extending proximally. The subcutaneous fat and palmar fascia was divided with a scalpel blade. Under loupe magnification the ulnar neurovascular bundle was identified distally. A hemostat could be passed under the transverse carpal ligament allowing the distal 25% to be divided. A slotted guide was then passed beneath the transverse carpal ligament and the middle 50% divided. Blunt scissors were then passed over the guide freeing the proximal ligament. The nerve was inspected with a normal variant noted. I the radial most branch of the ulnar nerve was a smaller and isolated in a separate compartment. A blunt tipped scissors used to free that compartment additionally distally. Smaller digital branches were noted ulnarly within the main compartment of the carpal tunnel. The tourniquet was deflated. Hemostasis provided with electrocautery. Wound edges were infiltrated with 10 cc of a half percent Marcaine solution. The medial elbow incision was first closed. Deep tissues were closed with 2-0 Vicryl. Subcutaneous is closed with 3-0 Vicryl. The skin was closed with a running 3-0 Prolene. Steri-Strips were applied. Carpal tunnel skin edges were reapproximated with 3-0 Prolene. A compressive dressing was applied from carpal tunnel across the elbow. Stew wrap was applied from the wrist to arm. The patient was placed in a sling and taken to recovery room in stable condition.
[2020-12-24] MEDS: HYDROcodone-acetaminophen 5-325 mg Tablet 1 TAB PO (11:30)
--- NOTE | 2020-12-24 16:53 | ANE.PACU2 ---
Inpatient post-anesthesia follow up: Airway intact: Yes Vital signs: Temperature 98.0 F Pulse Rate 66 Respiratory Rate 16 Blood Pressure 167/105 Pulse Oximetry 99 Oxygen Delivery Me thod Room Air Oxygen Flow Rate 8 Fraction of Inspir ed Oxygen Hydration adequate: Yes Nausea and vomiting: No Pain level: 2 Mental status: Baseline
== END 2020-12-24 11:30 | disposition home or self-care (01) ==
PROVIDERS: PCP Nurse Practitioner; Visit Provider Orthopaedic Surgery
PROC: (CPT 64721; principal; 2020-12-24 09:10)
PROC: (CPT 64718; 2020-12-24 09:10)
DX: G56.02 Carpal tunnel syndrome, left upper limb (principal); G56.22 Lesion of ulnar nerve, left upper limb; F17.210 Nicotine dependence, cigarettes, uncomplicated; G35 Multiple sclerosis
CPT/HCPCS: 64718; 64721; 96365; J0690; J2250; J2704; J3010; J3490; J7030

== ENCOUNTER → 2021-03-24 12:26 | Outpatient (BNVA) | payer MEDICAID, SELFPAY | PROVIDERS: PCP Nurse Practitioner; Visit Provider Specialist | DX: G35 Multiple sclerosis (principal); H57.02 Anisocoria; F17.210 Nicotine dependence, cigarettes, uncomplicated | CPT/HCPCS: 99214 ==

== ENCOUNTER 2021-05-14 10:57 | Outpatient (CLI) | payer MEDICAID, SELFPAY ==
--- NOTE | 2021-05-14 11:05 | MR_ITS ---
WS: [id number] MRI BRAIN AND ORBITS with and without CONTRAST. COMPARISON: 06/30/2020 Multiplanar, multisequence imaging is performed with and without contrast. Sagittal and axial T1 fat sat sequences post-MultiHance 16 cc IV. Orbits: Symmetric appearance in size of the optic nerves. On the postcontrast imaging there is very s light peripheral enhancement without enlargement of the RIGHT optic nerve. This is minimally asymmetr ic to the LEFT. No retro-orbital fat enhancement. The globes are intact. No enhancement through the o ptic chiasm. Multiple FLAIR and T2 signal hyperintensities are reidentified in a distribution consistent with juan ent's history of demyelinating disease. Visualized brainstem is normal. Linear FLAIR signal abnormali ty along the anterior inferior LEFT cerebellum is unchanged. There is increased T2 and FLAIR signal a bnormality involving the medial temporal lobes adjacent to the temporal horns. Slightly greater signa l abnormality on the LEFT. Although there is no enhancement there does appear to be a slightly greate r amount of signal abnormality on the LEFT. Bilateral pericallosal foci are identified. Some of these are rounded and some of these are linear in appearance extending to the corpus callosum. Additional foci of demyelination towards the RIGHT frontal vertex. Very similar in appearance to the prior exami [facility]. None of these demyelinating lesions enhance. No enhancing masses are identified. No enhancement within the demyelination. No significant atrophy o r prior infarct. Sinuses are clear. No mastoid air cell disease. No inferior displacement of cerebellar tonsils. Clivu s and pituitary gland are normal. MR/MR orbit face neck wo/w* [id number] IMPRESSION: 1. Very mild peripheral enhancement of the RIGHT optic nerve as compared to th e LEFT suggesting mild optic neuritis. No enlargement or mass. 2. No active demyelinating lesions. 3. Very minimal increase in size of the demyelinating lesion involving the med ial LEFT temporal lobe. No enhancement. The remaining signal abnormality is sta ble.
[2021-05-14] MEDS: gadobenate dimeglumine 20 mL vial IV (11:56)
== END 2021-05-14 10:58 | disposition home or self-care (01) ==
LOC: RADSHAW 11:03
PROVIDERS: PCP Nurse Practitioner; Visit Provider Specialist
DX: G35 Multiple sclerosis (principal)
CPT/HCPCS: 70543; A9577

== ENCOUNTER 2021-05-17 | Outpatient (CLI) | payer MEDICARE, MEDICAID, SELFPAY | END 2021-05-17 00:01 | disposition home or self-care (01) | LOC: NSACUTE 11-30 10:16 | PROVIDERS: PCP Nurse Practitioner; Visit Provider Specialist | DX: G35 Multiple sclerosis (principal) | CPT/HCPCS: 99214 ==

== ENCOUNTER 2021-05-17 09:01 | Outpatient (CLI) | payer MEDICAID, SELFPAY ==
[2021-05-17 09:27] VITALS: BP 144/97; PULSE 75; RESP 18; TEMP 36.7; O2SAT 97
[2021-05-17] MEDS: sodium chloride 0.9% 250 ML 75 ML IV (10:08)
[2021-05-17] MEDS: acetaminophen 500 mg Tablet 1000 MG PO (10:09)
[2021-05-17] MEDS: diphenhydrAMINE 50 mg/mL SDV 1mL 25 MG IV ×2 (10:10→11:06)
[2021-05-17 10:52] VITALS: BP 142/85; PULSE 60; RESP 16; TEMP 36.9; O2SAT 98
[2021-05-17 11:47] VITALS: BP 121/87; PULSE 65; RESP 16; TEMP 36.8; O2SAT 97
[2021-05-17 13:24] VITALS: BP 122/79; PULSE 80; RESP 18; TEMP 36.8; O2SAT 94
== END 2021-05-17 09:02 | disposition home or self-care (01) ==
LOC: ONCMED 09:01
PROVIDERS: PCP Nurse Practitioner; Referring Provider Specialist; Visit Provider Specialist
DX: G35 Multiple sclerosis (principal)
CPT/HCPCS: 96365; 96366; 96375; 96376; 99214; J1200; J2350; J2930; J7040; J7050

== ENCOUNTER 2021-07-21 15:58 | Outpatient (CLI) | payer MEDICAID, SELFPAY ==
--- NOTE | 2021-07-21 16:39 | XRR_ITS ---
PROCEDURE INFORMATION: Exam: XR Chest Exam date and time: 07/21/2021 4:39 PM Age: 35 years old Clinical indication: Screening exam; Other screening; Patient HX: Possible tb exposure 5 days ago; Additional info: Contact with and suspected exposure to tb TECHNIQUE: Imaging protocol: XR of the chest. Views: 2 views. COMPARISON: CR XR chest 1V portable [id number] 11/25/2020 6:38 PM FINDINGS: Lungs: Unremarkable. No consolidation. Pleural spaces: Unremarkable. No pleural effusion. No pneumothorax. Heart/Mediastinum: Unremarkable. No cardiomegaly. Bones/joints: Unremarkable. XR/XR chest 2V* [id number] IMPRESSION: No acute findings.
== END 2021-07-21 15:59 | disposition home or self-care (01) ==
LOC: RAD 16:07
PROVIDERS: PCP Nurse Practitioner; Visit Provider Nurse Practitioner Family
DX: Z20.1 Contact with and (suspected) exposure to tuberculosis (principal)
CPT/HCPCS: 71046

== ENCOUNTER 2021-11-16 09:01 | Outpatient (CLI) | payer MEDICARE, MEDICAID, SELFPAY ==
[2021-11-16 09:18] VITALS: BP 136/95; PULSE 69; RESP 18; TEMP 36.6; O2SAT 99
[2021-11-16] MEDS: sodium chloride 0.9% 250 ML 50 ML IV (09:53)
[2021-11-16] MEDS: acetaminophen 500 mg Tablet 1000 MG PO (09:54)
[2021-11-16] MEDS: diphenhydrAMINE 50 mg/mL SDV 1mL 25 MG IVP ×2 (09:56→10:44)
[2021-11-16 10:39] VITALS: BP 138/83; PULSE 65; RESP 18; TEMP 36.5; O2SAT 99
[2021-11-16 11:25] VITALS: BP 125/76; PULSE 65; RESP 18; TEMP 36.7; O2SAT 95
[2021-11-16 12:46] VITALS: BP 124/82; PULSE 66; RESP 18; TEMP 36.5; O2SAT 98
== END 2021-11-16 09:02 | disposition home or self-care (01) ==
PROVIDERS: PCP Nurse Practitioner; Referring Provider Specialist; Visit Provider Specialist
DX: G35 Multiple sclerosis (principal); R53.83 Other fatigue
CPT/HCPCS: 96365; 96366; 96375; 96376; 99213; 99214; J1200; J2350; J2930; J7040; J7050

== ENCOUNTER 2022-06-21 08:58 | Outpatient (CLI) | payer MEDICARE, MEDICAID, SELFPAY ==
[2022-06-21 09:19] VITALS: BP 135/78; PULSE 84; RESP 18; TEMP 37.4; O2SAT 98
[2022-06-21] MEDS: sodium chloride 0.9% 250 ML 50 ML IV (09:43)
[2022-06-21] MEDS: acetaminophen 500 mg Tablet 1000 MG PO (09:44)
[2022-06-21] MEDS: diphenhydrAMINE 50 mg/mL SDV 1mL 25 MG IVP ×3 (09:45→11:08)
[2022-06-21 10:35] VITALS: BP 130/76; PULSE 70; RESP 18; TEMP 36.8
[2022-06-21 11:41] VITALS: BP 114/72; PULSE 74; RESP 18; TEMP 36.3; O2SAT 95
[2022-06-21 13:29] VITALS: BP 141/84; PULSE 66; RESP 18; TEMP 36.5; O2SAT 98
== END 2022-06-21 08:59 | disposition home or self-care (01) ==
LOC: ONCMED 08:58
PROVIDERS: PCP Nurse Practitioner Family; Visit Provider Specialist
DX: G35 Multiple sclerosis (principal)
CPT/HCPCS: 96365; 96366; 96375; 96376; 99213; A4222; J1200; J2350; J2930; J7040; J7050